=== PATIENT | female | born 1960 | race Caucasian/White ===

== ENCOUNTER → 2017-12-07 | Outpatient (CLI) | payer OTHER ==
[2017-12-07 16:47] LABS: Basophils % (A) 1 %; Eosinophils # (A) 0.2 k/uL (0-0.7); Eosinophils % (A) 2 %; HCT 39.8 % (34.0-46.0); HGB 13.2 gm/dL (11.4-16.0); Lymphocytes # (A) 2.5 k/uL (1.0-4.8); Lymphocytes % (A) 29 %; MCHC 33.1 g/dL (31.0-37.0); MCV 90.6 fL (80.0-100.0); Mean Platelet Volume 7.6; Monocytes # (A) 0.3 k/uL (0-1.0); Monocytes % (A) 4 %; Neutrophils # (A) 5.4 k/uL (1.3-7.7); Neutrophils % (A) 64 %; Platelet Count 293 k/uL (150-450); RBC 4.39 m/uL (3.80-5.40); RDW 12.3 % (11.5-15.5); WBC 8.6 k/uL (3.8-10.6)
[2017-12-07 16:56] LABS: Anion Gap 9 mmol/L; Blood Urea Nitrogen 17 mg/dL (7-17); Carbon Dioxide 28 mmol/L (22-30); Chloride 103 mmol/L (98-107); Potassium 4.1 mmol/L (3.5-5.1); Sodium 140 mmol/L (137-145)
== END | disposition home or self-care (01) ==
LOC: LABPAT 16:09
PROVIDERS: ATTEND Urology
DX: N20.0 Calculus of kidney (principal)
CPT/HCPCS: 80051; 82565; 84520; 85025

== ENCOUNTER 2017-12-14 05:41 | Day surgery (SDC) | payer OTHER ==
[~2017-12-14 05:41] MED LIST: LACTATED RINGERS 1,000 ML IV SCH
[2017-12-14 06:26] VITALS: RESP 18; TEMP 96.9
[2017-12-14] MEDS ORDERED: LIDOCAINE 1% 20 ML VIAL (10MG/ML) FOR IV START INTRADERMA ONE (06:40)
[2017-12-14] MEDS ORDERED: LIDOCAINE 1% INJ 10MG/ML (20 ML MDV) ONE (07:43)
[2017-12-14] MEDS ORDERED: MIDAZOLAM 2 MG/2 ML VIAL ONE (07:43)
[2017-12-14] MEDS ORDERED: PROPOFOL 10 MG/ML 20 ML VIAL IV ONE (07:43)
[2017-12-14] MEDS ORDERED: fentaNYL (PF) 50 MCG/ML 2 ML AMP ONE (07:43)
--- NOTE | 2017-12-14 08:15 | XR ---
EXAMINATION TYPE: XR KUB DATE OF EXAM: 12/14/2017 5:50 AM CLINICAL HISTORY: Abdominal pain and nephrolithiasis TECHNIQUE: Single supine KUB image of the abdomen is obtained. COMPARISON: 03/17/2011. FINDINGS: At least 2 the previously seen right-sided calculi in the exam of 2010 are no longer visual ized and may have passed in the interim. The largest measures 4 mm within the right lower pole and an other vague midpole calculus measures approximately 3 mm. On the left there are at least 5 calculi wi th the largest in the upper pole measuring 1.3 cm. This is increased in number from the exam of 2010. No suspected calculi are seen along the courses of the ureters or within the low pelvis. Gas is seen in non-distended small bowel loops. Gas and fecal material is seen in non-distended colon. The lung bases are clear and the osseous structures are intact. IMPRESSION: 1. Bilateral nephrolithiasis with at least 2 calculi on the right measuring up to 4 mm (decreased in number from the prior exam of 2010) and at least 5 calculi in the left (increase in number from the p rior exam of 2010) measuring up to 1.3 cm. 2. No calculi are seen along the course of the ureters or within the urinary bladder.
--- NOTE | 2017-12-14 08:31 | P.OP ---
Date of Procedure: 12/14/17 Preoperative Diagnosis: Left Renal Calculi Postoperative Diagnosis: Same Procedure(s) Performed: Left Extracorporal Shockwave Lithotripsy (ESWL) Anesthesia: MAC Surgeon: Tez Castellanos Estimated Blood Loss (ml): 0 IV fluids (ml): 350 Pathology: none sent Condition: stable Disposition: PACU Indications for Procedure: The patient has a history of bilateral renal stones, for which she has had surgical procedures. She comes after 7 years with back pain and gross hematuria She was found to have bilateral renal calculi, L>R, and she has elected to undergo left ESWL. Operative Findings: Excellent fragmentation Description of Procedure: The patient was taken to the operating room and placed on the Dornier Lot18 Delta II lithotripter in the supine position. The calculi were seen on biplanar fluoroscopy. Once the patient was properly positioned and sedated, lithotripsy was performed. The energy level was gradually increased per protocol, to an energy level of 5. After 200 shocks were administered, a 2 minute pause was instituted per protocol. A total of 2500 shocks were given at a rate of 80 shocks per minute. Fluoroscopy was utilized at a minimum to ensure proper positioning and determine the treatment status. The 12 mm upper pole calculus was initially treated. This fragmented very well, and the patient was then repositioned to treat the lower pole calculi. These calculi fragmented to a lesser degree. The patient tolerated the procedure well was taken to the recovery room in stable condition. Instructions were given to strain the urine, and the patient will follow-up within one week.
[2017-12-14 08:35] VITALS: PULSE 53
[2017-12-14 08:55] VITALS: BP 116/70
== END 2017-12-14 09:25 | disposition home or self-care (01) ==
LOC: ORWHC2ENDO 05:41
PROVIDERS: ATTEND Urology
DX: N20.0 Calculus of kidney (principal); I10 Essential (primary) hypertension; G43.909 Migraine, unspecified, not intractable, without status migrainosus; Z79.899 Other long term (current) drug therapy; Z88.5 Allergy status to narcotic agent; Z87.891 Personal history of nicotine dependence
CPT/HCPCS: 74018; 50590; J2250; J2001; J3010; J2704

== ENCOUNTER → 2017-12-17 | Outpatient (CLI) | payer OTHER ==
--- NOTE | 2017-12-17 09:51 | XR ---
EXAMINATION TYPE: XR KUB DATE OF EXAM: 12/17/2017 HISTORY: hx of left side lithotripsy, stones Comparison: 12/14/2017 Single KUB is submitted for interpretation. Findings: Right renal calculi: 4.5 mm calculus lower pole right kidney. Mid pole calculus measures approximatel y 5 mm. Right ureteral calculi: None Visualized. Left renal calculi: Significant decrease in left-sided renal calculi. Mid pole calculus measures 5.6 mm. Several lower pole calculi measure up to 4 mm. Left ureteral calculi: Suspect 3 mm calculus within the urinary bladder or EJ region. Pelvic calcifications: None Visualized. Bowel gas pattern is unremarkable. No free air. No mass effects. IMPRESSION: 1. Significant decrease in left-sided renal calculi is noted. Distal left ureteral calculi difficult to exclude.
== END | disposition home or self-care (01) ==
LOC: RADXRMAIN 09:22
PROVIDERS: ATTEND Urology
DX: N20.0 Calculus of kidney (principal)
CPT/HCPCS: 74018

== ENCOUNTER → 2018-01-04 | Outpatient (CLI) | payer OTHER ==
[2018-01-04 17:32] LABS: Basophils % (A) 0 %; Eosinophils # (A) 0.2 k/uL (0-0.7); Eosinophils % (A) 2 %; HCT 40.8 % (34.0-46.0); HGB 13.4 gm/dL (11.4-16.0); Lymphocytes # (A) 2.5 k/uL (1.0-4.8); Lymphocytes % (A) 28 %; MCH 29.8 pg (25.0-35.0); MCHC 32.9 g/dL (31.0-37.0); MCV 90.4 fL (80.0-100.0); Mean Platelet Volume 7.6; Monocytes # (A) 0.5 k/uL (0-1.0); Monocytes % (A) 5 %; Neutrophils # (A) 5.4 k/uL (1.3-7.7); Neutrophils % (A) 62 %; Platelet Count 351 k/uL (150-450); RBC 4.52 m/uL (3.80-5.40); RDW 12.3 % (11.5-15.5); WBC 8.7 k/uL (3.8-10.6)
== END | disposition home or self-care (01) ==
LOC: LABWHC1 16:03
PROVIDERS: ATTEND Urology
DX: N20.0 Calculus of kidney (principal)
CPT/HCPCS: 36415; 85025

== ENCOUNTER 2018-01-11 07:26 | Day surgery (SDC) | payer OTHER ==
[2018-01-01 13:10] VITALS: BMI 30.8
[~2018-01-11 07:26] MED LIST changes: +DEXAMETHASONE SOD PHOSPHATE 10 MG/ML 1 ML VIAL IV ONE; +LIDOCAINE 1% 20 ML VIAL (10MG/ML) FOR IV START INTRADERMA PRN; +Pre Op ABX Message 1 EACH MISC MISCELLANE ONE
--- NOTE | 2018-01-11 07:47 | XR ---
EXAMINATION TYPE: XR KUB DATE OF EXAM: 01/11/2018 CLINICAL DATA: 57 year-old female prelithotripsy left kidney stones, [facility] COMPARISON: 12/17/2017 FINDINGS: Redemonstrated bilateral renal calculi, 2 seen on the right, the lower pole calculus was previously u nder measured, this measures 1.1 cm. 3 calculi on the left, previously the 3 mm upper pole calculus w as obscured on the prior exam. Previous possible Steinstrasse on the left no longer seen. Nonobstructive bowel gas pattern with scattered [id number] stool. IMPRESSION: 2 calculi on the right and 3 renal calculi on the left as above. The previous possible left-sided Polo instrasse is no longer seen.
[2018-01-11 08:25] VITALS: TEMP 97.8
[2018-01-11] MEDS ORDERED: PROPOFOL 10 MG/ML 20 ML VIAL IV ONE (09:52)
[2018-01-11] MEDS ORDERED: GLYCOPYRROLATE 0.2 MG/ML 2 ML VIAL ONE (09:52)
[2018-01-11] MEDS ORDERED: MIDAZOLAM 2 MG/2 ML VIAL ONE (09:52)
[2018-01-11] MEDS ORDERED: fentaNYL (PF) 50 MCG/ML 2 ML AMP ONE (09:52)
--- NOTE | 2018-01-11 10:33 | P.OP ---
Date of Procedure: 01/11/18 Preoperative Diagnosis: left renal calculi Postoperative Diagnosis: Left renal calculi Procedure(s) Performed: Extracorporal shockwave lithotripsy Anesthesia: MAC Surgeon: Casey Bangura Estimated Blood Loss (ml): 0 Pathology: none sent Condition: stable Disposition: PACU Indications for Procedure: The patient is a 57 year old female with a history of urolithiasis and gross hematuria who underwent ESWL treatment of four left renal calculi on 12/14/2017. She continues to have a 4x5 mm mid pole calculus and 4 and 3 mm lower pole calculi. Repeat ESWL treatment is planned. Description of Procedure: The patient was taken to the lithotripsy suite and placed in the supine position. The calculus in the mid pole of the left kidney was localized using biplanar fluoroscopy. Intravenous sedation was given. Lithotripsy was performed using the Dornier compact delta unit. Patient received 1500 shocks at 80 shocks per minute to the calculus in the mid pole of the left kidney. The power level was gradually increased to level 5. A 2 minute upon is occurred after 200 shocks. The calculi in the lower pole the kidney were then treated in a similar fashion with 1000 shocks. There appeared to be fragmentation of the calculi. Patient tolerated the procedure well and left the op room awake and in satisfactory condition. She'll be seen back in the office in 5 days at which time a KUB will be obtained.
[2018-01-11 10:52] VITALS: RESP 16
[2018-01-11 11:14] VITALS: BP 117/69; PULSE 59
== END 2018-01-11 11:27 | disposition home or self-care (01) ==
LOC: ORWHC2ENDO 07:26
PROVIDERS: ATTEND Urology
DX: N20.0 Calculus of kidney (principal); I10 Essential (primary) hypertension; Z87.442 Personal history of urinary calculi; Z87.891 Personal history of nicotine dependence; Z79.899 Other long term (current) drug therapy; Z88.5 Allergy status to narcotic agent
CPT/HCPCS: 74018; 50590; J2250; J3010; J2704

== ENCOUNTER → 2018-01-15 | Outpatient (CLI) | payer OTHER ==
--- NOTE | 2018-01-15 08:44 | XR ---
EXAMINATION TYPE: XR abdomen 1V DATE OF EXAM: 01/15/2018 8:24 AM CLINICAL HISTORY: Kidney stones, recent left-sided lithotripsy TECHNIQUE: Two supine KUB images of the abdomen are obtained. COMPARISON: Abdominal x-ray from 4 days ago FINDINGS: Bilateral nephrolithiasis is redemonstrated. The larger 2 calculi measuring up to 6 mm long axis prior study mid to lower pole level in the left kidney are not clearly identified after nephrol ithiasis, smaller calculi are present. There is redemonstration of 11 and 7 mm stable calculi in the right kidney. Lung bases are clear. There is overall nonobstructive bowel gas pattern. Visualized osseous structure s are intact. IMPRESSION: Suspect successful left-sided lithotripsy of the 2 larger left renal calculi.
== END | disposition home or self-care (01) ==
LOC: RADXRMAIN 08:07
PROVIDERS: ATTEND Urology
DX: N20.0 Calculus of kidney (principal)
CPT/HCPCS: 74018

== ENCOUNTER → 2018-02-06 | Outpatient (CLI) | payer OTHER ==
[2018-02-06 09:45] LABS: Basophils % (A) 0 %; Eosinophils # (A) 0.1 k/uL (0-0.7); Eosinophils % (A) 2 %; HCT 41.6 % (34.0-46.0); HGB 13.7 gm/dL (11.4-16.0); Lymphocytes # (A) 1.7 k/uL (1.0-4.8); Lymphocytes % (A) 28 %; MCH 29.8 pg (25.0-35.0); MCHC 32.8 g/dL (31.0-37.0); MCV 90.6 fL (80.0-100.0); Mean Platelet Volume 7.5; Monocytes # (A) 0.3 k/uL (0-1.0); Monocytes % (A) 5 %; Neutrophils # (A) 3.9 k/uL (1.3-7.7); Neutrophils % (A) 63 %; Platelet Count 327 k/uL (150-450); RDW 12.3 % (11.5-15.5); WBC 6.2 k/uL (3.8-10.6)
[2018-02-06 10:06] LABS: Anion Gap 13 mmol/L; Blood Urea Nitrogen 21 mg/dL (7-17); Carbon Dioxide 26 mmol/L (22-30); Chloride 105 mmol/L (98-107); Glucose 86 mg/dL (74-99); Potassium 4.5 mmol/L (3.5-5.1); Sodium 144 mmol/L (137-145)
== END | disposition home or self-care (01) ==
LOC: LABPAT 08:41
PROVIDERS: ATTEND Physician Assistant
DX: Z01.812 Encounter for preprocedural laboratory examination (principal); N20.0 Calculus of kidney; Z79.899 Other long term (current) drug therapy
CPT/HCPCS: 36415; 80048; 85025

== ENCOUNTER 2018-02-15 05:47 | Day surgery (SDC) | payer OTHER ==
[2018-02-10 11:52] VITALS: BMI 30.8
[~2018-02-15 05:47] MED LIST changes: -DEXAMETHASONE SOD PHOSPHATE 10 MG/ML 1 ML VIAL IV ONE; -LACTATED RINGERS 1,000 ML IV SCH; -LIDOCAINE 1% 20 ML VIAL (10MG/ML) FOR IV START INTRADERMA PRN
[2018-02-15] MEDS ORDERED: LIDOCAINE 1% 20 ML VIAL (10MG/ML) FOR IV START INTRADERMA PRN (05:55)
[2018-02-15] MEDS ORDERED: LACTATED RINGERS 1,000 ML IV SCH (05:55)
[2018-02-15] MEDS ORDERED: MIDAZOLAM 2 MG/2 ML VIAL IV PRN (05:55)
[2018-02-15 06:44] VITALS: RESP 16; TEMP 97.4
--- NOTE | 2018-02-15 07:12 | XR ---
EXAMINATION TYPE: XR KUB DATE OF EXAM: 02/15/2018 CLINICAL DATA: 58 year-old female right internal calculus, [facility] COMPARISON: 01/15/2018 FINDINGS: Supine imaging limited for assessment of free intraperitoneal air. There are scattered mild to moderate stool with nonobstructive bowel gas pattern. Redemonstrated bilateral nephrolithiasis with 2 calculi on the right measuring up to 1.1 cm and 2 sma ller calculi on the left measuring up to 3 mm. The previously seen left upper pole calculus may be of secured by bowel content. There is a subtle 4 mm density in the left hemipelvis that could represent a distal ureteral or bladd er calculus. Not clearly seen previously. IMPRESSION: 1. Bilateral nephrolithiasis measuring up to 1.1 cm on the right and 3 mm on the left. 2. The small left upper pole left renal calculus seen previously may be obscured by bowel content 3. New 4 mm density in the left side of the pelvis could represent a phlebolith not well seen previou sly or a distal ureteral calculus or bladder calculus.
[2018-02-15] MEDS ORDERED: LIDOCAINE 1% INJ 10MG/ML (20 ML MDV) ONE (07:26)
[2018-02-15] MEDS ORDERED: GLYCOPYRROLATE 0.2 MG/ML 2 ML VIAL ONE (07:26)
[2018-02-15] MEDS ORDERED: fentaNYL (PF) 50 MCG/ML 2 ML AMP ONE (07:26)
[2018-02-15] MEDS ORDERED: MIDAZOLAM 2 MG/2 ML VIAL ONE (07:26)
[2018-02-15] MEDS ORDERED: KETAMINE 10 MG/ML 20 ML VIAL ONE (07:26)
[2018-02-15] MEDS ORDERED: PROPOFOL 10 MG/ML 20 ML VIAL IV ONE (07:26)
--- NOTE | 2018-02-15 08:08 | P.OP ---
Date of Procedure: 02/15/18 Preoperative Diagnosis: Right renal calculi Postoperative Diagnosis: Same Procedure(s) Performed: Extracorporeal shockwave lithotripsy right 2500 shocks at energy level IV Anesthesia: MAC Surgeon: Job Mi Pathology: none sent Condition: stable Disposition: PACU Indications for Procedure: The patient has 2 stones in her right kidney she comes for shockwave lithotripsy as they are causing discomfort Description of Procedure: Patient is brought to the operating suite. She's placed on the operating table in supine position. The 2 stones are seen under fluoroscopy. I first 1500 shocks the middle pole calyx fracture the stone it was an 8 mm stone. I then given thousand shocks to the larger lower pole stone it also fractures nicely. Then procedure the patient awake and returned recovery in good condition. She tolerated procedure well be seen in the office in one week. Dictation
[2018-02-15 08:46] VITALS: BP 119/65; PULSE 62
== END 2018-02-15 08:56 | disposition home or self-care (01) ==
LOC: ORWHC2ENDO 05:47
PROVIDERS: ATTEND Urology
DX: N20.0 Calculus of kidney (principal); I10 Essential (primary) hypertension; G43.909 Migraine, unspecified, not intractable, without status migrainosus; K21.9 Gastro-esophageal reflux disease without esophagitis; Z79.899 Other long term (current) drug therapy; Z87.891 Personal history of nicotine dependence
CPT/HCPCS: 74018; 50590; J2250; J2001; J3010; J2704

== ENCOUNTER → 2018-02-18 | Outpatient (CLI) | payer OTHER ==
--- NOTE | 2018-02-18 11:03 | XR ---
EXAMINATION TYPE: XR KUB DATE OF EXAM: 02/18/2018 9:14 AM CLINICAL HISTORY: Nephrolithiasis. TECHNIQUE: Single supine KUB image of the abdomen is obtained. COMPARISON: 02/15/2018. FINDINGS: The previously seen right midpole renal calculus measuring approximately 8 mm is stable fro m the prior examination of 02/15/2018. The right lower pole 1.1 cm calculus has either passed in the i nterim or is obscured by overlying colonic stool. Punctate left lower pole renal calculus is unchange d from the prior. Punctate left midpole calculus has either passed or is obstructed by overlying colo charly stool. Additional left upper pole punctate 1 to 2 mm calculus is seen within the region of the le ft upper pole. The previously seen left hemipelvic 4 mm density has passed in the interim. No new ascencion cifications are seen within the pelvis. Moderate amount retained colonic stool is present, somewhat limiting evaluation. Osseous structures a ppear intact. The lung bases are clear. IMPRESSION: 1. Stability of right midpole and left lower pole renal calculi. 2. Nonvisualization of a 1.1 cm right lower pole renal calculus and punctate left midpole renal calcu marie in comparison to the prior exam of 02/15/2018. These may be obstructed by overlying colonic stool or may have passed in the interim. 3. Interval passage of the previously seen 4 mm left hemipelvic.
== END | disposition home or self-care (01) ==
LOC: RADXRMAIN 08:54
PROVIDERS: ATTEND Urology
DX: N20.0 Calculus of kidney (principal)
CPT/HCPCS: 74018

== ENCOUNTER → 2018-04-02 | Outpatient (CLI) | payer OTHER ==
--- NOTE | 2018-04-02 08:03 | XR ---
Abdomen HISTORY: Kidney stones Frontal view of the abdomen correlated to prior exam 02/18/2018 Scattered bilateral renal calculi are again noted. There are likely 4-5 left-sided renal calculi all measuring no greater than 3 to 4 mm. Right-sided renal calculus is thought to measure approximately 4 mm, there may be an additional calculus measuring approximately 7 mm at the level of the renal pelvi s although there is overlying bowel gas which obscures detail. IMPRESSION: Bilateral nephrolithiasis.
== END | disposition home or self-care (01) ==
LOC: RADXRMAIN 07:38
PROVIDERS: ATTEND Urology
DX: N20.0 Calculus of kidney (principal)
CPT/HCPCS: 74018

== ENCOUNTER → 2018-04-26 | Outpatient (CLI) | payer OTHER | END | disposition home or self-care (01) | LOC: LABWHC1 06:36 | PROVIDERS: ATTEND Urology | DX: Z53.9 Procedure and treatment not carried out, unspecified reason (principal) ==

== ENCOUNTER → 2018-08-09 | Outpatient (CLI) | payer OTHER ==
[2018-08-09 07:46] LABS: Basophils % (A) 0 %; Eosinophils # (A) 0.2 k/uL (0-0.7); Eosinophils % (A) 2 %; HCT 40.7 % (34.0-46.0); HGB 13.3 gm/dL (11.4-16.0); Lymphocytes # (A) 1.7 k/uL (1.0-4.8); Lymphocytes % (A) 26 %; MCH 30.1 pg (25.0-35.0); MCHC 32.6 g/dL (31.0-37.0); MCV 92.3 fL (80.0-100.0); Monocytes # (A) 0.3 k/uL (0-1.0); Monocytes % (A) 5 %; Neutrophils # (A) 4.1 k/uL (1.3-7.7); Neutrophils % (A) 65 %; Platelet Count 318 k/uL (150-450); RBC 4.41 m/uL (3.80-5.40); RDW 12.8 % (11.5-15.5); WBC 6.3 k/uL (3.8-10.6)
[2018-08-09 07:56] LABS: Appearance,Urine Clear (Clear); Bilirubin,Urine Negative (Negative); Blood,Urine Negative (Negative); Color,Urine Yellow; Glucose,Urine (UA) Negative (Negative); Ketones,Urine Negative (Negative); Leukocyte Esterase,Urine Small (Negative); Mucus,Urine Rare /hpf; Nitrite,Urine Negative (Negative); Protein,Urine Negative (Negative); RBC,Urine 3 /hpf (0-5); Specific Gravity,Urine 1.016 (1.001-1.035); Squamous Epithelial Cell,Urine 1 /hpf (0-4); Urobilinogen,Urine <2.0 mg/dL (<2.0); WBC,Urine 4 /hpf (0-5)
[2018-08-09 08:03] LABS: Blood Urea Nitrogen 20 mg/dL (7-17)
== END | disposition home or self-care (01) ==
LOC: LABPAT 06:53
PROVIDERS: ATTEND Urology
DX: Z01.812 Encounter for preprocedural laboratory examination (principal); N20.0 Calculus of kidney
CPT/HCPCS: 81001; 82565; 84520; 85025

== ENCOUNTER → 2018-09-08 | Outpatient (CLI) | payer OTHER ==
[2018-09-08 07:28] LABS: Basophils % (A) 0 %; Eosinophils # (A) 0.2 k/uL (0-0.7); Eosinophils % (A) 2 %; HCT 39.8 % (34.0-46.0); HGB 13.6 gm/dL (11.4-16.0); Lymphocytes # (A) 1.8 k/uL (1.0-4.8); Lymphocytes % (A) 22 %; MCH 31.4 pg (25.0-35.0); MCHC 34.2 g/dL (31.0-37.0); MCV 91.8 fL (80.0-100.0); Mean Platelet Volume 7.1; Monocytes # (A) 0.4 k/uL (0-1.0); Monocytes % (A) 4 %; Neutrophils # (A) 5.5 k/uL (1.3-7.7); Neutrophils % (A) 69 %; Platelet Count 279 k/uL (150-450); RBC 4.33 m/uL (3.80-5.40); RDW 12.7 % (11.5-15.5)
[2018-09-08 07:44] LABS: Appearance,Urine Clear (Clear); Bilirubin,Urine Negative (Negative); Blood,Urine Trace (Negative); Color,Urine Yellow; Glucose,Urine (UA) Negative (Negative); Ketones,Urine Negative (Negative); Leukocyte Esterase,Urine Trace (Negative); Mucus,Urine Rare /hpf; Nitrite,Urine Negative (Negative); Protein,Urine Negative (Negative); RBC,Urine 1 /hpf (0-5); Specific Gravity,Urine 1.018 (1.001-1.035); Squamous Epithelial Cell,Urine 1 /hpf (0-4); Urobilinogen,Urine <2.0 mg/dL (<2.0); WBC,Urine 1 /hpf (0-5)
== END | disposition home or self-care (01) ==
LOC: LABWHC1 06:44
PROVIDERS: ATTEND Urology
DX: Z01.812 Encounter for preprocedural laboratory examination (principal); N20.0 Calculus of kidney
CPT/HCPCS: 36415; 81001; 82565; 84520; 85025; 87086

== ENCOUNTER 2018-09-13 07:16 | Day surgery (SDC) | payer OTHER ==
[2018-09-08 15:50] VITALS: BMI 29.2
[~2018-09-13 07:16] MED LIST changes: +LACTATED RINGERS 1,000 ML IV SCH
--- NOTE | 2018-09-13 07:21 | XR ---
EXAMINATION TYPE: XR KUB DATE OF EXAM: 09/13/2018 CLINICAL DATA: 58-year-old female preoperative evaluation of kidney stone, [facility] COMPARISON: 02/18/[address] 08/26/2018 FINDINGS: Lung bases are clear. Supine imaging limited for assessment of free intraperitoneal air. Nonobstructive bowel gas pattern. Scattered mild to moderate stool. Calcific densities are present on both sides, measuring 4 mm upper pole right kidney and a couple 3 m m calcific densities on the left injecting at the mid to lower pole. IMPRESSION: Small bilateral renal calculi demonstrated measuring up to 4 mm.
[2018-09-13 07:33] VITALS: TEMP 97.9
[2018-09-13] MEDS ORDERED: LACTATED RINGERS 1,000 ML IV ONE ×2 (07:33)
[2018-09-13] MEDS ORDERED: LIDOCAINE 1% 20 ML VIAL (10MG/ML) FOR IV START INTRADERMA ONE (07:33)
[2018-09-13] MEDS ORDERED: ONDANSETRON 4 MG/2 ML VIAL IVP ONE (07:43)
[2018-09-13] MEDS ORDERED: DEXAMETHASONE SOD PHOS (MDV) 100 MG/10 ML VIAL IVP ONE (07:44)
[2018-09-13] MEDS ORDERED: GLYCOPYRROLATE 0.2 MG/ML 2 ML VIAL ONE (08:37)
[2018-09-13] MEDS ORDERED: PROPOFOL 10 MG/ML 20 ML VIAL IV ONE (08:37)
[2018-09-13] MEDS ORDERED: MIDAZOLAM 2 MG/2 ML VIAL ONE (08:37)
[2018-09-13] MEDS ORDERED: fentaNYL (PF) 50 MCG/ML 2 ML AMP ONE (08:37)
[2018-09-13] MEDS ORDERED: KETAMINE 10 MG/ML 20 ML VIAL ONE (08:37)
--- NOTE | 2018-09-13 09:21 | P.OP ---
Date of Procedure: 09/13/18 Preoperative Diagnosis: Left renal calculi Postoperative Diagnosis: Same Procedure(s) Performed: Left extracorporal shockwave lithotripsy (ESWL) Anesthesia: MAC Surgeon: Tez Castellanos Estimated Blood Loss (ml): 0 IV fluids (ml): 500 Pathology: none sent Condition: stable Disposition: PACU Indications for Procedure: The patient is a 58-year-old woman with bilateral renal calculi. She is symptomatic and desires treatment. KUB x-ray shows 2 left lower pole renal calculi, each measuring approximately 3 mm in size. She comes for ESWL. Operative Findings: Questionable fragmentation. Description of Procedure: The patient was taken to the operating room and placed on the [employer]ier [email or web address] Delta II lithotripter in the supine position. The calculi were seen on biplanar fluoroscopy. Once the patient was properly positioned and sedated, lithotripsy was performed. The energy level was gradually increased per protocol, to an energy level of 5. After 200 shocks were administered, a 2 minute pause was instituted per protocol. The more lateral calculus was initially treated with 1400 shocks, and the patient was then repositioned to allow the other calculus to be treated with the remaining 1100 shocks. A total of 2500 shocks were given at a rate of 80 shocks per minute. Fluoroscopy was utilized at a minimum to ensure proper positioning and determine the treatment status. The appearance of the calculi appeared to change to a subtle degree. The patient tolerated the procedure well was taken to the recovery room in stable condition. Instructions were given to strain the urine, and the patient will follow-up within one week.
[2018-09-13 10:01] VITALS: BP 131/70; PULSE 55; RESP 16
== END 2018-09-13 10:26 | disposition home or self-care (01) ==
LOC: ORWHC2ENDO 07:16
PROVIDERS: ATTEND Urology
DX: N20.0 Calculus of kidney (principal); Z87.442 Personal history of urinary calculi; I10 Essential (primary) hypertension; K21.9 Gastro-esophageal reflux disease without esophagitis; Z79.899 Other long term (current) drug therapy; Z88.5 Allergy status to narcotic agent; Z87.891 Personal history of nicotine dependence
CPT/HCPCS: 74018; 50590; J2250; J2405; J3010; J1100; J2704

== ENCOUNTER → 2018-09-22 | Outpatient (CLI) | payer OTHER ==
--- NOTE | 2018-09-22 13:24 | XR ---
EXAMINATION TYPE: XR KUB DATE OF EXAM: 09/22/2018 12:59 PM CLINICAL HISTORY: Left-sided kidney stones. TECHNIQUE: Two supine KUB images of the abdomen are obtained. COMPARISON: Abdominal x-ray from [address] abdomen and pelvis August 26, 2018. FINDINGS: There is redemonstration of 2-3 calculi scattered throughout the right kidney measured up t o 4 mm in size. There are 2-3 small calculi redemonstrated scattered throughout the left kidney measu ring up to 3 mm in size. More smaller calculi are seen on recent CT less well seen on plain films. Overall nonobstructive bowel gas pattern is present. Lung bases are clear. Osseous structures are int act. IMPRESSION: Redemonstration of bilateral nephrolithiasis, no significant interval change from most re cent x-ray.
== END ==
LOC: RADXRMAIN 12:37
PROVIDERS: ATTEND Urology
DX: N20.0 Calculus of kidney (principal)
CPT/HCPCS: 74018

== ENCOUNTER 2022-12-17 10:44 | Day surgery (SDC) | payer BC, OTHER ==
[~2022-12-17 10:44] MED LIST changes: +LIDOCAINE 1% (10MG/ML) FOR IV START INTRADERMA PRN; -Pre Op ABX Message 1 EACH MISC MISCELLANE ONE
[2022-12-17 11:23] VITALS: RESP 16; TEMP 97.7
[2022-12-17] MEDS ORDERED: PROPOFOL 10 MG/ML 20 ML VIAL IV ONE (11:54)
--- NOTE | 2022-12-17 12:11 | P.PCN ---
Date of Procedure: 12/17/22 Procedure(s) Performed: BRIEF HISTORY: Patient is a 62-year-old pleasant white female scheduled for an elective colonoscopy as a part of screening for colon cancer. PROCEDURE PERFORMED: Colonoscopy snare polypectomy. PREOPERATIVE DIAGNOSIS: Screening for colon cancer. IV sedation per Anesthesia. PROCEDURE: After informed consent was obtained, the patient, was brought into the endoscopy unit. IV sedation was administered by Anesthesia under continuous monitoring. Digital rectal examination was normal. Initially the Olympus CF-160 flexible video colonoscope was then inserted in the rectum, gradually advanced into the cecum without any difficulty. Careful examination was performed as the scope was gradually being withdrawn. Ileocecal valve and the appendiceal orifice were visualized and appeared normal. Prep was excellent. Mucosa of the cecum, ascending colon, appeared normal. In the distal transverse colon there was a 7 mm polyp removed by snare polypectomy. Rest of the transverse colon, descending colon, sigmoid colon, and rectum appeared normal. Retroflexion was performed in the rectum and no lesions were seen. In the distal rectum there was a 3 mm polyp removed by snare polypectomy. The patient tolerated the procedure well. IMPRESSION: 7 mm distal transverse colon polyp serous posterior polypectomy 3 mm distal rectal polyp status post polypectomy RECOMMENDATIONS: Findings of this examination were discussed with the patient is well as her family. She was advised to follow with the biopsies as. If the biopsy result adenoma she can have a repeat colonoscopy in 5 years..
[2022-12-17 12:31] VITALS: BP 117/55; PULSE 59
== END 2022-12-17 12:45 | disposition home or self-care (01) ==
LOC: ORWHC2ENDO 10:44
PROVIDERS: ATTEND Internal Medicine Gastroenterology
DX: Z12.11 Encounter for screening for malignant neoplasm of colon (principal); K63.5 Polyp of colon; K62.1 Rectal polyp; I10 Essential (primary) hypertension; Z87.891 Personal history of nicotine dependence; K21.9 Gastro-esophageal reflux disease without esophagitis; Z79.899 Other long term (current) drug therapy; Z87.442 Personal history of urinary calculi; Z98.890 Other specified postprocedural states
CPT/HCPCS: 45385; 88305; J2704